=== PATIENT | female | born 1950 | race African-American/Black ===

== ENCOUNTER 2020-09-09 09:51 | Emergency (ER) | payer OTHER | END 2020-09-09 10:36 | disposition home or self-care (01) | LOC: JVIRT 09:51 | DX: U07.1 COVID-19 (principal) | CPT/HCPCS: C9803; G2012-GT; U0003 ==

== ENCOUNTER 2020-10-09 11:36 | Emergency (ER) | payer OTHER | END 2020-10-09 13:53 | disposition home or self-care (01) | LOC: JVIRT 11:36 | DX: U07.1 COVID-19 (principal) | CPT/HCPCS: 36415; 86769; C9803; G2251-GT; U0003 ==